=== PATIENT | female | born 1935 | race Caucasian/White ===

== ENCOUNTER 2021-10-02 03:55 | Observation (INO) | payer OTHER ==
[2021-10-02 04:21] VITALS: BMI 16.7
[2021-10-02 05:06] LABS: INR 1.11 (0.83-1.09); PROTHROMBIN TIME (PATIENT) 12.8 SEC (9.7-13.0)
[2021-10-02 05:09] LABS: ACTIVATED PTT 32.1 SECONDS (25.2-36.5)
[2021-10-02 05:18] LABS: BASO % 0.7 % (0-2.0); EOS % 1.4 % (0-4.5); HEMATOCRIT 35.2 % (32.4-45.2); HEMOGLOBIN 12.3 GM/dL (10.7-15.3); LYMPH % 17.3 % (8-40); MCH 30.9 pg (25.7-33.7); MCHC 34.8 g/dl (32.0-36.0); MEAN CELL VOLUME 88.6 fl (80-96); MEAN PLT VOLUME 7.2 fl (7.5-11.1); MONO % 9.4 % (3.8-10.2); NEUT % 71.2 % (42.8-82.8); PLATELET COUNT 289 10^3/uL (134-434); RBC 3.97 M/mm3 (3.60-5.2); RDW 13.6 % (11.6-15.6); WHITE BLOOD COUNT 8.2 K/mm3 (4.0-10.0)
[2021-10-02 05:20] LABS: CALCIUM 8.8 mg/dL (8.5-10.1)
[2021-10-02 05:21] LABS: ALBUMIN 3.5 g/dl (3.4-5.0); BLOOD UREA NITROGEN 32.2 mg/dL (7-18)
[2021-10-02 05:24] LABS: CREATININE 0.8 mg/dL (0.55-1.3)
[2021-10-02 05:25] LABS: BILIRUBIN,TOTAL 0.2 mg/dL (0.2-1); TOT PROT 6.7 g/dl (6.4-8.2)
[2021-10-02] MEDS ORDERED: DIPHTH,PERTUSS(ACELL),TET 0.5 ML DISP.SYRIN IM ONE ×2 (05:52→05:57)
[2021-10-02] MEDS ORDERED: SODIUM CHLORIDE 0.9% 500 ML INFUS.BAG IV ONE (06:43)
[2021-10-02] MEDS ORDERED: ACETAMINOPHEN 1000 MG/100 ML BAG IVPB ONE (06:43)
[2021-10-02] MEDS ORDERED: ACETAMINOPHEN INJECTION 100 ML IVPB ONE (06:45)
[2021-10-02] MEDS ORDERED: SERTRALINE HCL 50 MG TABLET (FP) PO SCH (16:45)
[2021-10-02] MEDS ORDERED: risperiDONE 0.25 MG TABLET PO SCH (16:45)
[2021-10-02] MEDS ORDERED: risperiDONE 0.5 MG TABLET ONE (16:58)
[2021-10-02] MEDS ORDERED: SERTRALINE HCL 50 MG TABLET (FP) ONE (16:59)
[2021-10-02] MEDS ORDERED: clonazePAM 0.5 MG TABLET ONE (17:05)
[2021-10-02] MEDS: clonazePAM 0.5 MG TABLET PO SCH (17:37)
[2021-10-02] MEDS ORDERED: APIXABAN 2.5 MG TABLET PO SCH (22:00)
[2021-10-02] MEDS ORDERED: HEPARIN NA (PORCINE) 5,000 UNITS/ML 1ML VIAL ONE (22:26)
[2021-10-02] MEDS: DEXTROSE 5%-0.45% SALINE 1,000 ML IV SCH (22:33)
[2021-10-02] MEDS: HEPARIN NA (PORCINE) 5,000 UNITS/ML 1ML VIAL SQ SCH (22:33)
[2021-10-02 23:17] LABS: EPI CELLS 2 /uL (0-25.1); HYALINE CASTS 0 /uL (0-3.1); URINE APPEARANCE CLEAR; URINE BACTERIA 4060 /uL (0-1359); URINE BILIRUBIN NEGATIVE (NEGATIVE); URINE COLOR YELLOW; URINE GLUCOSE (UA) NEGATIVE (NEGATIVE); URINE KETONE NEGATIVE (NEGATIVE); URINE LEUK ESTERASE 2+ (NEGATIVE); URINE NITRITE NEGATIVE (NEGATIVE); URINE PROTEIN NEGATIVE (NEGATIVE); URINE RBC 1 /uL (0-23.9); URINE UROBILINOGEN 0.2 mg/dL (0.2-1.0); URINE WBC 36 /uL (0-25.8)
[2021-10-03] MEDS: ACETAMINOPHEN 325 MG TABLET (FP) PO PRN (05:08)
[2021-10-03] MEDS: clonazePAM 0.5 MG TABLET PO SCH (09:45)
[2021-10-03] MEDS: HEPARIN NA (PORCINE) 5,000 UNITS/ML 1ML VIAL SQ SCH ×2 (09:45→21:40)
[2021-10-03] MEDS: DEXTROSE 5%-0.45% SALINE 1,000 ML IV SCH (21:00)
[2021-10-04] MEDS: ACETAMINOPHEN 325 MG TABLET (FP) PO PRN ×2 (02:40→13:29)
[2021-10-04] MEDS: clonazePAM 0.5 MG TABLET PO SCH (09:52)
[2021-10-04] MEDS: HEPARIN NA (PORCINE) 5,000 UNITS/ML 1ML VIAL SQ SCH (09:53)
[2021-10-04 11:55] VITALS: BP 133/60; PULSE 80; RESP 18; TEMP 97.8
== END 2021-10-04 18:35 ==
LOC: JER 03:55 → JERBED 06:08 → J4W 10-03 03:16
PROVIDERS: ADMIT Family Medicine; ATTEND Family Medicine
PROC: 3E033NZ Introduction of Analgesics, Hypnotics, Sedatives into Peripheral Vein, Percutaneous Approach (ICD-10-PCS; principal; 2021-10-02)
PROC: 3E033GC Introduction of Other Therapeutic Substance into Peripheral Vein, Percutaneous Approach (ICD-10-PCS; 2021-10-02)
PROC: 3E0234Z Introduction of Serum, Toxoid and Vaccine into Muscle, Percutaneous Approach (ICD-10-PCS; 2021-10-02)
PROC: 3E0337Z Introduction of Electrolytic and Water Balance Substance into Peripheral Vein, Percutaneous Approach (ICD-10-PCS; 2021-10-02)
DX: S01.01XA Laceration without foreign body of scalp, initial encounter (principal); W18.39XA Other fall on same level, initial encounter; Z91.81 History of falling; Y93.89 Activity, other specified; Y92.099 Unspecified place in other non-institutional residence as the place of occurrence of the external cause; I48.91 Unspecified atrial fibrillation; F03.90 Unspecified dementia, unspecified severity, without behavioral disturbance, psychotic disturbance, mood disturbance, and anxiety; Z88.8 Allergy status to other drugs, medicaments and biological substances; Z91.018 Allergy to other foods; J44.9 Chronic obstructive pulmonary disease, unspecified; D64.9 Anemia, unspecified; Z79.01 Long term (current) use of anticoagulants
CPT/HCPCS: 0241U-QW; 36415; 70450-TC; 71045-TC-FY; 72125-TC; 72170-TC-FY; 80053; 81003; 82962; 84484; 85025; 85610; 85730; 86850; 86900; 86901; 87086; 87186; 90471; 90715; 93005; 93010; 93306-TC; 93880-TC; 96372; 96374; 96375; 97116-GP; 97162-GP; 99285-25; G0378; J1644